=== PATIENT | male | born 1970 ===

== ENCOUNTER 2018-09-29 09:11 | Day surgery (SDC) | payer OTHER ==
[2018-09-29 09:47] VITALS: BMI 33.9
--- NOTE | 2018-09-29 10:34 | CP.SDSHP ---
Same Day Surgery H & P - History Proposed Procedure: colonscopy Pre-Op Diagnosis: SEE NOTES - Previous Medical/Surgical History Neuro: Backaches Pain: 4.Moderate Pain - Allergies Allergies: Allergies No Known Allergies Allergy (Verified 09/29/18 09:47) - Physical Exam General Appearance: N Vital Signs: Vital Signs 09/29/18 09:51 Temperature 97.5 F L Pulse Rate 72 Respiratory 18 Rate Blood Pressure 115/79 O2 Sat by Pulse 98 Oximetry Mental Status: Alert & Oriented x3 Neuro: WNL Heart: WNL Lungs: WNL GI: Other - {Optional Preform as Required} Breast: WNL Abdomen: Other Rectal: Other Integument: WNL : WNL Ortho: Other ENT: WNL - Impression Pt. Evaluated Today:Candidate for Anesthesia & Procedure: Yes - Date & Time Time: 10:33 Short Stay Discharge - Short Stay Discharge Admitting Diagnosis/Reason for Visit: ENCOUNTER FOR SCREENING FOR MALIGNANT NEOPLASM OF Disposition: HOME/ ROUTINE Referrals: Casandra Kennedy MD [Primary Care Provider] -
[2018-09-29] MEDS ORDERED: Propofol 10 mg/ml Inj (20 ML) ONE (10:37)
[2018-09-29] MEDS ORDERED: Belladonna-Phenobarbital PO STA (10:40)
[2018-09-29] MEDS ORDERED: Lactated Ringer's 500 ML IV ONE ×2 (10:44)
[2018-09-29 11:11] VITALS: O2SAT 100
[2018-09-29 12:02] VITALS: BP 119/71; PULSE 77; RESP 20; TEMP 97.7
== END 2018-09-29 11:55 | disposition home or self-care (01) ==
LOC: C.ENDO 09:11
PROVIDERS: ATTEND Specialist
DX: Z12.11 Encounter for screening for malignant neoplasm of colon (principal); D12.4 Benign neoplasm of descending colon
CPT/HCPCS: 45385; 88305; J2704; J7120